=== PATIENT | female | born 1985 | race African-American/Black ===

== ENCOUNTER 2022-08-13 19:25 | Emergency (ER) | payer SELFPAY ==
[~2022-08-13] VITALS: Ht 170.2 cm; Wt 91.0 kg
[2022-08-13 19:44] VITALS: BP 146/104
[2022-08-13] MEDS ORDERED: KETOROLAC 15MG/ML VIAL IM ONE (22:15)
[2022-08-13] MEDS ORDERED: CYCLOBENZAPRINE 10MG TABLET PO ONE (22:15)
[2022-08-14] MEDS ORDERED: NAPR500T7 MT (00:32)
[2022-08-14] MEDS ORDERED: CYCL10TA21 MT (00:32)
== END 2022-08-14 00:40 | disposition home or self-care (01) ==
LOC: ER 19:25
DX: S00.83XA Contusion of other part of head, initial encounter (principal); M54.59 Other low back pain; M54.2 Cervicalgia; M79.645 Pain in left finger(s); M79.651 Pain in right thigh; R03.0 Elevated blood-pressure reading, without diagnosis of hypertension; V49.49XA Driver injured in collision with other motor vehicles in traffic accident, initial encounter; Y93.89 Activity, other specified; Y92.488 Other paved roadways as the place of occurrence of the external cause
CPT/HCPCS: 73130; 73552; 81025; 99284; J1885